=== PATIENT | male | born 1955 | race Caucasian/White ===

== ENCOUNTER 2021-03-23 12:32 | Day surgery (SDC) | payer MEDICARE, SELFPAY ==
[2021-03-23] VITALS (11 sets, daily range): BP systolic 128–166; BP diastolic 65–97; PULSE 67–88; RESP 16–18; TEMP 36.2–37.1; O2SAT 95–97; BMI 37.2
--- NOTE | 2021-03-23 | PROS_PTH ---
PATIENT: CORAZON FARRELL LOC: [facility] [place] U#:[id number] AGE/SX: 66/M ROOM: RE03/23/[address]: Dr. Julian Berg MD : [id number] BED: DIS: 03/24/2021 SPEC #: [id number] RECD: 03/26/21 07:03 STATUS: [place] #: [id number] ANDRE: 03/23/21 00:[address]: Julian Berg DEPT: SURGICAL PATHOLOGY RECD BY: Zachary Vaughn ENTERED: 03/26/21 07:58 SP TYPE: TURP OTHR DR: Dr. Severiano Johnson, DO Tissues: Prostate, NOS Procedures: Surgery Specimen Level IV HEADER OPERATION: Cysto, TUR prostate, Olympus PRE-OP DIAGNOSIS: Benign prostatic hyperplasia with obstruction TISSUE SUBMITTED: Prostate tissue MICROSCOPIC DIAGNOSIS Prostate tissue, TUR: Benign prostatic hyperplasia, glandular and stromal type. Moderate to marked acute and chronic inflammation. SJ:raoul 03/27/2021 MICROSCOPIC DESCRIPTION Slides are reviewed. GROSS DESCRIPTION Received is one container labeled with the patient's name and designated prostate tissue. The specimen consists of multiple irregular fragments of pink-grover, rubbery, soft tissue that in aggregate weigh 13.4 gm and measure in aggregate 6 x 5 x 2.5 cm. Doorkeeper tissue is submitted in ten cassettes. / STEW:raoul 03/26/21 TC:5 CPT: 63753
--- NOTE | 2021-03-23 13:12 | EKG12_ITS ---
Test Reason : PRE OP Blood Pressure : / mmHG Vent. Rate : 084 BPM Atrial Rate : 084 BPM P-R Int : 154 ms QRS Dur : 110 ms QT Int : 372 ms P-R-T Axes : 012 050 043 degrees QTc Int : 439 ms Normal sinus rhythm Normal ECG Confirmed by YOANDY COLÓN, PAULO ([id number]), medical editor AMANDA LIN ([id number]) on 03/28/2021 9:59:47 AM Referred By: Julian Berg Confirmed By:PAULO PITT MD
[2021-03-23] MEDS: Lactated Ringers 1,000 ML 100 ML IV (13:20)
[2021-03-23 14:10] LABS: Thyroid Stim Hormone (TSH) 8.82 uIU/mL (0.358-3.74)
--- NOTE | 2021-03-23 16:07 | PCM.DC ---
Discharge Instructions Diet Discharge Diet: No restrictions Activity Discharge Activity: May not drive while taking narcotic pain medications. (for 3 days.) May shower in (days): 1 Dressing / Incision Call your doctor if your incision/area has: Continuous Slow Oozing, Increased Pain/ Swelling, Increased Redness and Foul Smelling Discharge Call your doctor if you observe: Fever of 101 or Higher, Numbness or Tingling, Shortness of breath, Dizziness, Calf discomfort and Uncontrolled pain Cleanse incision/area with: Keep Dressing Clean & Dry Follow Up Care Please Follow Up With: Julian Berg MD When: Call [phone] for an appointment Test Results: Test results from this visit will be discussed in further detail at your follow-up appointment, if applicable. Discharge Plan Admission Primary Reason for Your Visit: turp Attending Provider: Julian Berg Primary Care Provider: Severiano Johnson Discharge Orders/Prescriptions Prescriptions: New ciprofloxacin HCl [Cipro] 500 mg tablet 500 mg PO BID Qty: 14 RF: 0 Continued levothyroxine [Synthroid] 175 MCG tablet 200 mcg PO DAILY RF: 0 cyanocobalamin (vitamin B-12) 2,500 MCG tablet, sublingual 2,500 mcg PO DAILY RF: 0 aspirin 81 MG tablet,chewable 81 mg PO DAILY@0800 RF: 0 ergocalciferol (vitamin D2) [Vitamin D2] 50,000 UNIT capsule 50,000 unit PO MO RF: 0 calcium 600 mg Capsule 650 mg PO DAILY RF: 0 tamsulosin [Flomax] 0.4 mg Capsule 0.4 mg PO QHS RF: 0 ascorbic acid (vitamin C) 1,000 mg Capsule, Extended Release 1,000 cap PO DAILY RF: 0 dutasteride 0.5 mg Capsule 0.5 mg PO DAILY RF: 0 multivitamin Tablet,Chewable 2 tab PO DAILY RF: 0 Referrals / Follow Up: Julian Berg MD [STAFF PHYSICIAN] - Severiano Johnson DO [Primary Care Provider] -
--- NOTE | 2021-03-23 16:08 | PCM.HP.STD ---
HPI - General HPI Narrative Presents for transurethral resection of the prostate is developed retention of urine and had a catheter placed and Dylon FARRELL, is a 66 M who presents [facility] Medical History (Updated 03/23/21 @ 16:[address] Julian Berg MD) Alcohol use Anemia Cancer History of pain when walking Leg cramps Non-smoker Prostate disease Thyroid disease Wears glasses Wears hearing aid Home Medications aspirin 81 mg PO DAILY@0800 12/02/16 [History Last Taken 03/20/21] cyanocobalamin (vitamin B-12) 2,500 mcg PO DAILY 12/02/16 [History Last Taken Unknown] ergocalciferol (vitamin D2) [Vitamin D2] 50,000 unit PO MO 12/02/16 [History Last Taken Unknown] levothyroxine [Synthroid] 200 mcg PO DAILY 12/02/16 [History Last Taken Unknown] ascorbic acid (vitamin C) 1,000 cap PO DAILY 03/22/21 [History Last Taken Unknown] calcium 650 mg PO DAILY 03/22/21 [History Last Taken Unknown] dutasteride 0.5 mg PO DAILY 03/22/21 [History Last Taken Unknown] multivitamin 2 tab PO DAILY 03/22/21 [History Last Taken Unknown] tamsulosin [Flomax] 0.4 mg PO QHS 03/22/21 [History Last Taken Unknown] ciprofloxacin HCl [Cipro] 500 mg PO BID #14 tab 03/23/21 [Rx Last Taken Unknown] Allergy/AdvReac Type Severity Reaction Status Date / Time No Known Allergies Allergy Verified 03/22/21 08:16 Surgical History (Updated 03/22/21 @ 08:29 by Merissa Dahl) Hx of colonoscopy Hx of tonsillectomy Hx of total thyroidectomy Social History Smoking Status: Never smoker Vital Signs Vital Signs Vital Signs: 03/23/21 13:03 03/23/21 15:53 03/23/21 16:01 Temperature 98.7 F 97.2 F L Temperature Source Temporal Temporal Pulse Rate 87 85 Pulse Strength Weak (1+) Respiratory Rate 16 16 Respiratory Pattern Normal Normal Blood Pressure 134/84 H 128/79 H Blood Pressure Mean 100 95 Blood Pressure Source Monitor Monitor Blood Pressure Position Semi-Fowlers Semi-Fowlers Blood Pressure Location Left Arm Left Arm Baseline BP 134/84 Pulse Ox 95 95 Oxygen Delivery Method Room Air Room Air Physical Exam Const alert and oriented x3 General Appearance: cooperative HEENT normocephalic, head/scalp atraumatic, EAC's normal and TM's normal bilaterally Eyes PERRL and EOMs intact bilaterally Pupil: sluggish Neck no lymphadenopathy, supple and no JVD General: trachea midline Lymph Lymphatic: no lymphadenopathy noted, lymphedema and lymphadenopathy Resp normal respiratory effort, normal air movement and clear to auscultation bilaterally Cardio regular rate, regular rhythm and peripheral pulses 2+ throughout GI soft to palpation, non-tender and non-distended Extremity normal capillary refill and no clubbing, cyanosis or edema General Extremity: no tenderness to palpation of joints or extremities Skin no rashes or lesions noted General Skin Exam: turgor normal Lesions: no lesions Rashes: no rashes Neuro CN's II-XII intact bilaterally Speech: speech normal Motor Exam: strength 5/5 throughout; Negative for general weakness Psych thought process normal, cooperative and affect normal Appearance: appropriate Lab / Micro Data Labs: Laboratory Results - last 24 hr 03/23/21 13:00 TSH 8.82 H Assessment & Plan Assessment/Plan (1) Urinary retention: PLAN: Plan to proceed with a TURP
--- NOTE | 2021-03-23 16:09 | OP.PCM_ITS ---
Report of Operation Date of Procedure: 03/23/21 Pre-Operative Diagnosis: bph with obstruction Post-Operative Diagnosis: same Surgery/Procedure Performed:: TURP Description of Surgical Findings:: In the preoperative setting I discussed with the patient how the surgery would be done with expect afterwards. We discussed how a prostate resection is done and we discussed the risk of the surgery including, bleeding, infection, retrograde ejaculation, changes with ejaculation or intercourse,. We discussed the possibility that the resection of the prostate may not alleviate his urinary symptoms. We discussed the small risk of developing scar tissue along the urethral channel and strictures. We also discussed the chance of the prostate could grow back and he may need further surgery or treatment in the future for prostate problems. Patient was taken back to the operating room, timeout procedure was performed, he was identified and marked and placed on the operating room table. He underwent general anesthesia. He was placed in dorsolithotomy position. Penis and testicles were prepped and draped in usual sterile fashion. Went into the bladder using the visual obturator with a resectoscope. Once inside the bladder identified the right and left ureteral orifice. I then identified the prostate and the anatomy of the prostate. I marked out the area of the sphincter and the verumontanum was identified. I then proceeded with the prostate resection first resected the median lobe. And then resected the right lobe of the prostate. Then to resect the left lobe of the prostate. I then resected the apical tissue of the prostate. Made sure that there was no injury to the sphincter or the verumontanum was still intact. At the end of the resection all the chips were Ellik out of the bladder. I then identified the left and right ureteral orifice and these were confirmed to be in good position and effluxing and not injured. The resectoscope was removed, a 22 Sloven[place] catheter was placed into the bladder on continuous irrigation. And the urine was fairly light pink color and draining normally. He was taken back to the PACU in good condition. Surgeon: stone Type of Anesthesia: General Admit VTE Documentation VTE Present on Admission: No VTE Mechan Device Prophylaxis: SCD's
[2021-03-23] MEDS: Tamsulosin HCl 0.4 MG Capsule PO (22:04)
[2021-03-23] MEDS: Docusate Sodium 100 MG Capsule 200 MG PO (22:04)
[2021-03-23] MEDS: Cefazolin 1 GM/50 ML BAG IV (22:09)
[2021-03-23] MEDS: 0.9% Normal Saline 1,000 ML 125 ML IV (23:07)
[2021-03-24 04:25] VITALS: BP 120/63; PULSE 71; RESP 18; TEMP 36.9; O2SAT 97
[2021-03-24] MEDS: Levothyroxine 100 MCG Tablet 200 MCG PO (05:58)
[2021-03-24] MEDS: Cefazolin 1 GM/50 ML BAG IV (05:59)
[2021-03-24] MEDS: 0.9% Normal Saline 1,000 ML 125 ML IV (06:37)
[2021-03-24 09:52] VITALS: BP 121/76; PULSE 90; RESP 18; TEMP 37.1; O2SAT 95
[2021-03-24] MEDS: Docusate Sodium 100 MG Capsule 200 MG PO (09:54)
[2021-03-24] MEDS: Ascorbic Acid 500 MG Tablet 1000 MG PO (09:54)
[2021-03-24] MEDS: Finasteride 5 MG Tablet PO (09:55)
[2021-03-24] MEDS: Cyanocobalamin 500 MCG Tablet 2500 MCG PO (09:55)
[2021-03-24] MEDS: Multivitamins,Therapeutic Tablet 1 TABLET PO (09:55)
[2021-03-24] MEDS: Calcium (Elemental) 500 MG Tablet PO (09:55)
== END 2021-03-24 14:30 ==
LOC: SDC 12:36 → AC 12:39 → MS3 16:12
PROVIDERS: Anesthesiology; PCP Preventive Medicine Occupational Medicine; Referring Provider Urology; Visit Provider Urology
PROC: (CPT 52601; principal; 2021-03-23 14:20)
DX: N40.1 Benign prostatic hyperplasia with lower urinary tract symptoms (principal); N13.8 Other obstructive and reflux uropathy; R33.8 Other retention of urine; D64.9 Anemia, unspecified; E07.9 Disorder of thyroid, unspecified; Z79.82 Long term (current) use of aspirin; Z79.899 Other long term (current) drug therapy
CPT/HCPCS: 00914; 52601; 84443; 88305; 93005; 99251; J7030; J7120; G0463; J2405

== ENCOUNTER → 2021-08-07 | Outpatient (CLI) | payer MEDICARE, SELFPAY | END | disposition home or self-care (01) | LOC: LABSPEC 17:06 | PROVIDERS: PCP Preventive Medicine Occupational Medicine; Referring Provider Urology; Visit Provider Urology | DX: R31.9 Hematuria, unspecified (principal) | CPT/HCPCS: 87077; 87086; 87088; 87186 ==